=== PATIENT | male | born 1960 | race Caucasian/White ===

== ENCOUNTER 2019-01-09 10:39 | Observation (INO) ==
[2019-01-09 11:08] LABS: BASO# 0.06 X1000 (0.0-0.2); BASO% 0.4 % (0.0-0.8); EOS# 1.06 X1000 (0.0-0.7); EOS% 7.1 % (0.0-10.0); HEMATOCRIT 38.9 % (42.0-52.0); HEMOGLOBIN 13.8 g/dL (14.0-18.0); IMM GRAN# 0.04 X1000 (0.0-0.04); IMM GRAN% 0.3 % (0.0-0.5); LYMPH# 2.06 X1000 (1.2-3.4); LYMPH% 13.9 % (20.5-51.1); MCH 30.9 PG (27-31); MCHC 35.5 g/dL (33-37); MONO# 1.54 X1000 (0.11-0.59); MONO% 10.4 % (1.7-9.3); MPV 9.6 FL (7.4-10.4); NEUT# 10.07 X1000 (1.4-6.5); NEUT% 67.9 % (42.2-75.2); PLT 387 X1000 (130-400); RBC 4.47 XMIL (4.7-6.1); RDW 12.6 % (11.5-14.5); WBC 14.83 X1000 (4.8-10.8)
--- NOTE | 2019-01-09 11:28 | EKG Report ---
Test Performed on : 01/09/2019 10:52:10 AM Test Reason : syncope Blood Pressure : / mmHG Vent. Rate : 098 BPM Atrial Rate : 098 BPM P-R Int : 172 ms QRS Dur : 082 ms QT Int : 338 ms P-R-T Axes : 047 015 063 degrees QTc Int : 431 ms Normal sinus rhythm. Normal ECG No previous ECGs available Unconfirmed Result
[2019-01-09 11:37] LABS: ALBUMIN 4.5 g/dL (3.5-5.0); CALCIUM 8.8 mg/dL (8.8-10.2); CREATININE 1.4 mg/dL (0.7-1.2); POTASSIUM 3.7 mmol/L (3.5-5.1); TOTAL BILIRUBIN 0.4 mg/dL (0.20-1.00); TOTAL PROTEIN 7.2 g/dL (6.3-8.3)
[2019-01-09 11:39] LABS: INR 0.95; PROTIME 13.2 Seconds (11.0-16.0)
[2019-01-09 11:40] LABS: PTT 27.1 Seconds (22.3-41.8)
[2019-01-09] MEDS ORDERED: SODIUM CHLORIDE IV ONE (11:44)
[2019-01-09] MEDS ORDERED: NS 1,000 ML IV ONE (11:44)
[2019-01-09 13:12] LABS: BILIRUBIN URINE NEGATIVE (NEGATIVE); BLOOD URINE 4+ (NEGATIVE); CLARITY CLEAR (CLEAR); COLOR YELLOW; GLUCOSE URINE NEGATIVE (NEGATIVE); KETONE URINE NEGATIVE (NEGATIVE); LEUKOCYTES URINE 2+ (NEGATIVE); NITRITE URINE NEGATIVE (NEGATIVE); PROTEIN URINE 2+(100 mg/dL) mg/dL (NEGATIVE); UROBILINOGEN URINE NORMAL
[2019-01-09 13:14] LABS: URINE BACTERIA 1+ /HFP; URINE CAST NONE SEEN /LPF; URINE CRYSTAL NONE SEEN /HPF; URINE EPITHELIAL CELLS <10 /HPF (<10); URINE RBC TNTC /HPF (<10); URINE SOURCE CLEAN CATCH; URINE WBC 20-40 /HPF (<10); URINE YEAST NONE SEEN /HPF
--- NOTE | 2019-01-09 13:47 | Diag Imaging Result Doc PS360 ---
CHEST-1 VIEW - 01/09/2019 INDICATION: Sepsis COMPARISON: None FINDINGS: The lungs are normally expanded and clear. Heart size and mediastinal contours are normal. No pneumothorax or pleural effusion. IMPRESSION: Negative exam. Electronically signed by Sidney Palomares 01/09/2019 1:45 PM
--- NOTE | 2019-01-09 14:16 | PROVIDER DOCUMENTATION ---
This chart was entered by Kalina Ford Scribe, acting as scribe for Donavan Acharya MD. HPI-Syncope/Dizziness - General Chief Complaint: Syncope Stated Complaint: PASSED OUT Time Seen by Provider: 01/09/19 11:19 Source: patient Allergies/Adverse Reactions: Patient Allergies Allergy/AdvReac Type Severity Reaction Status Date / Time No Known Allergies Allergy Verified 01/09/19 10:47 - History of Present Illness-Syncope/Dizzy Nature of Presenting Problem: 58 y/o male presents to ED with dizziness onset 2 days ago. Pt reports he has b een falling due to his symptoms. Pt states he experiences dizziness when he stands up. Pt reports he had cardenas placed in Dr. Laughlin's office on Friday due to retention and incontinence. Pt states he has experienced dysuria and hematuria since cardenas placement. Pt is alert and oriented. Prior Episodes: reports: no prior history Onset/Duration: reports: 2 days ago Timing: reports: still present Position/Activity at time of episode: reports: standing Symptoms prior to episode: reports: none Context: reports: collapsed, felt faint, almost passed out Loss of Consciousness: no loss of consciousness Location of injury. (If syncope resulted in an injury.): reports: none Current Symptoms: reports: dizzy Recently Seen Here or By Another Healthcare Provider: No - Dizziness Severity in ED: reports: mild Dizziness Related Current/Associated Symptoms: reports: dizzy Any recent trauma/injury?: reports: none Modifying Factors: improves with: lying down. worse with: changing position, standing position Patient usually:: reports: walks without assistance Review of Systems - Adult - REVIEW OF SYSTEMS - ADULT Constitutional: denies: chills, fever Eyes: reports: no symptoms reported Ears, Nose, Mouth & Throat: reports: no symptoms reported Cardiovascular: denies: chest pain, palpitations Respiratory: denies: cough, shortness of breath Gastrointestinal: denies: abdominal pain, diarrhea, nausea, vomiting Genitourinary: reports: dysuria, hematuria Musculoskeletal: denies: back pain, joint pain Integumentary: reports: no symptoms reported Neurological: reports: dizziness/vertigo. denies: seizure Psychiatric: reports: no symptoms reported Endocrine: reports: no symptoms reported Hematologic/Lymphatic: reports: no symptoms reported Allergic/Immunologic: reports: no symptoms reported All Other Systems: Reviewed and Negative Past History - Adult - PAST MEDICAL HISTORY-ADULT Review of Records: reports: Old Records Reviewed, Nursing Assessment Review, Medications Reviewed Major Childhood Illnesses: reports: denies history Cardiovascular: reports: HTN Musculoskeletal: reports: other (neuropathy) Psychiatric: reports: depression Endocrine/Immune: reports: Diabetes, thyroid disorder - PRIOR SURGERIES/PROCEDURES Surgical/Procedure History: reports: none - IMMUNIZATION STATUS Childhood Immunizations: See Nurse Assessment Flu Vaccine: See Nurse Assessment - FAMILY HISTORY Family History: reviewed, not pertinent - SOCIAL HISTORY Smoking: non-smoker Substance Use: none/never Alcohol Use Frequency: never Living Situation: family Physical Exam-General - PHYSICAL EXAM-ADULT Initial Vital Signs Reviewed: Yes (100s/60s) - CONSTITUTIONAL General Appearance: appears well, alert, no apparent distress - EYES Eyes: PERRL/EOMI, pink conjunctivae - HEAD, EARS, NOSE, MOUTH & THROAT HENMT: normocephalic/atraumatic, moist mucous membranes, normal ENT inspection - NECK Neck: non-tender, full range of motion - RESPIRATORY Respiratory: chest non-tender, lungs clear, normal breath sounds - CARDIOVASCULAR Cardiovascular: normal peripheral pulses, regular rate, rhythm - GASTROINTESTINAL (ABDOMEN) Abdominal Exam: normal bowel sounds, non tender, soft - GENITOURINARY Male Genitalia: other (red urine in catheter bag; cardenas in place) - MUSCULOSKELETAL Back Exam: normal inspection, no CVA tenderness, no vertebral tenderness Extremity: normal range of motion, non-tender, normal gait - SKIN Integumentary: normal color, warm/dry - NEUROLOGIC Neurologic: grossly normal - PSYCHIATRIC Psych/Mental Status: normal mood/affect, normal thought content, normal thought process, oriented x 3 Progress - PLAN OF CARE/RESULTS Progress/Plan/Lab Results: Vital Signs - 8 hr 01/09/19 10:43 01/09/19 10:54 01/09/19 12:44 Temperature 98.6 F Pulse Rate 112 H 88 Pulse Rate [Sitting] 108 H Pulse Rate [Standing] 118 H Pulse Rate [Supine] 99 H Respiratory Rate 18 24 Blood Pressure 104/72 122/84 Blood Pressure [Sitting] 76/31 Blood Pressure [Standing] 69/34 Blood Pressure [Supine] 80/62 O2 Sat by Pulse Oximetry 97 93 L Laboratory Results - last 24 hr 01/09/19 01/09/19 01/09/19 11:00 11:00 11:00 WBC 14.83 H RBC 4.47 L Hgb 13.8 L Hct 38.9 L MCV 87.0 MCH 30.9 MCHC 35.5 RDW Std Deviation 12.6 Plt Count 387 MPV 9.6 Immature Gran % (Auto) 0.3 Neut % (Auto) 67.9 Lymph % (Auto) 13.9 L Pima % (Auto) 10.4 H Eos % (Auto) 7.1 Baso % (Auto) 0.4 Immature Gran # (Auto) 0.04 Neut # (Auto) 10.07 H Lymph # (Auto) 2.06 Pima # (Auto) 1.54 H Eos # (Auto) 1.06 H Baso # (Auto) 0.06 PT INR PTT (Actin FS) Sodium 136 Potassium 3.7 Chloride 94 L Carbon Dioxide 27 Anion Gap 15 BUN 22 Creatinine 1.4 H Estimated GFR/1.73 m2 52 BUN/Creatinine Ratio 16 Glucose 130 H Calculated Osmolality 277 Calcium 8.8 Total Bilirubin 0.40 AST 20 ALT 18 Alkaline Phosphatase 68 Creatine Kinase 109 Troponin T Qyd-P-Kfmjakizody Pept 20 Total Protein 7.2 Albumin 4.5 Globulin 3.0 Albumin/Globulin Ratio 2.0 Plasma Lactate PSA Diagnostic Urine Source Urine Color Urine Clarity Urine pH Ur Specific [place] Urine Protein Urine Ketones Urine Blood Urine Nitrite Urine Bilirubin Urine Urobilinogen Urine Microscopic RBC Urine WBC Urine Microscopic WBC Ur Epithelial Cells Urine Crystals Urine Bacteria Urine Casts Urine Yeast Urine Glucose 01/09/19 01/09/19 01/09/19 11:00 11:00 11:00 WBC RBC Hgb Hct MCV MCH MCHC RDW Std Deviation Plt Count MPV Immature Gran % (Auto) Neut % (Auto) Lymph % (Auto) Pima % (Auto) Eos % (Auto) Baso % (Auto) Immature Gran # (Auto) Neut # (Auto) Lymph # (Auto) Pima # (Auto) Eos # (Auto) Baso # (Auto) PT 13.2 INR 0.95 PTT (Actin FS) 27.1 Sodium Potassium Chloride Carbon Dioxide Anion Gap BUN Creatinine Estimated GFR/1.73 m2 BUN/Creatinine Ratio Glucose Calculated Osmolality Calcium Total Bilirubin AST ALT Alkaline Phosphatase Creatine Kinase Troponin T < 0.010 Cdg-F-Guszmqhiqzr Pept Total Protein Albumin Globulin Albumin/Globulin Ratio Plasma Lactate PSA Diagnostic 3.84 Urine Source Urine Color Urine Clarity Urine pH Ur Specific [place] Urine Protein Urine Ketones Urine Blood Urine Nitrite Urine Bilirubin Urine Urobilinogen Urine Microscopic RBC Urine WBC Urine Microscopic WBC Ur Epithelial Cells Urine Crystals Urine Bacteria Urine Casts Urine Yeast Urine Glucose 01/09/19 01/09/19 11:55 13:05 WBC RBC Hgb Hct MCV MCH MCHC RDW Std Deviation Plt Count MPV Immature Gran % (Auto) Neut % (Auto) Lymph % (Auto) [place] % (Auto) Eos % (Auto) Baso % (Auto) Immature Gran # (Auto) Neut # (Auto) Lymph # (Auto) [place] # (Auto) Eos # (Auto) Baso # (Auto) PT INR PTT (Actin FS) Sodium Potassium Chloride Carbon Dioxide Anion Gap BUN Creatinine Estimated GFR/1.73 m2 BUN/Creatinine Ratio Glucose Calculated Osmolality Calcium Total Bilirubin AST ALT Alkaline Phosphatase Creatine Kinase Troponin T Fqc-A-Gokiibnaznk Pept Total Protein Albumin Globulin Albumin/Globulin Ratio Plasma Lactate 1.5 PSA Diagnostic Urine Source CLEAN CATCH Urine Color YELLOW Urine Clarity CLEAR Urine pH 7.0 Ur Specific [place] 1.000 Urine Protein 2+(100 mg/dL) A Urine Ketones NEGATIVE Urine Blood 4+ Urine Nitrite NEGATIVE Urine Bilirubin NEGATIVE Urine Urobilinogen NORMAL Urine Microscopic RBC TNTC A Urine WBC 2+ A Urine Microscopic WBC 20-40 A Ur Epithelial Cells <10 Urine Crystals NONE SEEN Urine Bacteria 1+ Urine Casts NONE SEEN Urine Yeast NONE SEEN Urine Glucose NEGATIVE Orders Category Date Time Status Bladder Scan and Record Result ORDERED Care 01/09/19 11:50 Active Cardiac Monitoring DIRECTED Care 01/09/19 10:54 Active Cardiac Monitoring DIRECTED Care 01/09/19 11:39 Active Finger Stick Blood Sugar (ED) DIRECTED Care 01/09/19 10:48 Active IV Insertion ORDERED Care 01/09/19 11:39 Completed Notify MD of + Sepsis Screen NOW Care 01/09/19 11:39 Active Notify Physician As Ordered Care 01/09/19 11:39 Active Nursing- Obtain EKG ONCE Care 01/09/19 10:48 Active Oxygen Therapy- ED Nursing DIRECTED Care 01/09/19 10:54 Active Saline Loc NOW Care 01/09/19 10:54 Active CHEST-1 VIEW [RAD] Stat Exams 01/09/19 11:39 Completed BLOOD CULTURE [BLDCUL] Stat Lab 01/09/19 11:44 Ordered CBC WITH ELECTRONIC DIFF [HEME] Stat Lab 01/09/19 11:00 Completed CK PROFILE [SP CHEM] Stat Lab 01/09/19 11:00 Completed COMPREHENSIVE METABOLIC PANEL [CHEM] Stat Lab 01/09/19 11:00 Completed LACTATE, PLASMA [CHEM] Lab 01/09/19 13:53 Received LACTATE, PLASMA [CHEM] Lab 01/09/19 17:45 Uncollected LACTATE, PLASMA [CHEM] Q3H Lab 01/09/19 11:55 Completed PRO B-NATRIURETIC PEPTIDE Stat Lab 01/09/19 11:00 Completed PROTIME WITH INR [COAG] Stat Lab 01/09/19 11:00 Completed PSA DIAGNOSTIC Stat Lab 01/09/19 11:00 Completed PTT [COAG] Stat Lab 01/09/19 11:00 Completed TROPONIN T Stat Lab 01/09/19 11:[address] W/POSS RFLX CULT [URINALYSIS] Stat Lab 01/09/19 13:05 Completed URINE CULTURE [RM] Routine Lab 01/09/19 13:14 Ordered 0.9% Sodium Chloride Inj [Ns] 1,000 ml Med 01/09/19 11:44 Discontinued IV 999 mls/hr 0.9% Sodium Chloride Inj [Ns] 3,250 ml Med 01/09/19 11:44 Active IV 999 mls/hr CP/SOB/Palp >45 yrs of Age Stat Oth 01/09/19 10:53 Ordered Oxygen Device Stat Oth 01/09/19 11:39 Active EKG [EKG] Stat Ther 01/09/19 10:48 Draft Result Diagrams: 01/09/19 11:00 01/09/19 11:00 - EKG 1 Time of EKG reading by physician:: 10:52 EKG Read and Signed by:: Donavan Acharya EKG Interpretation (*Must complete 3 of following elements*): Normal Rate: 98 Rhythm: NSR Standish: normal QRS: normal PA Interval: normal ST Wave: normal - XRAY 1 XRAY Study: Chest Impression: See EMR Report ([facility] - [address], [address], [place] [address] [facility] - [address] [place] [address] Department of Imaging Patient: HECTOR PATEL Date: 01/09/19MR#: [id number] : 9ADM Status: REG ERAt#: [id number] Age/Sex: 58/MRoom/Bed: Loc: P.ED Ordering Physician: Donavan Acharya MD Family Physician: Brie Carson Reason for Procedure: Sepsis Signed CHEST-1 VIEW - 01/09/2019 INDICATION: Sepsis COMPARISON: None FINDINGS: The lungs are normally expanded and clear. Heart size and mediastinal contours are normal. No pneumothorax or pleural effusion. IMPRESSION: Negative exam. Electronically signed by Sidney Palomares 01/09/2019 1:45 PM 01/09/19 134 Interpreting Physician: Sidney Palomares MD Dictated Date/Time: 01/09/19 1345 cc: Donavan Acharya MD; Brie Carson) - CONSULTS/PCP/HOSPITALIST Notification #1 *Consult/PCP/Hospitalist*: TYLER Cordova for Dr. Jorgensen Time Discussed: 14:08 Reason/Comments: Hypotension; complicated UTI with cardenas Consult Disposition: Admit Departure - Departure Date of Disposition Decision: 01/09/19 Time of Disposition Decision: 14:08 DIAGNOSIS: Complicated UTI (urinary tract infection), Indwelling Cardenas catheter present Hypotension Qualifiers: Hypotension type: unspecified hypotension type Qualified Code(s): I95.9 - Hypotension, unspecified Disposition: ADMITTED INPATIENT 09 Certified Medical Emergency: Emergent Condition: Stable Referrals and Follow-Ups: Brie Carson [Primary Care Provider] - - Critical Care Note This patient required my direct & personal management of CC.: No Attestation - Physician/ SHAMEKA Attestation Patient care was provided by Advanced Practice Provider:: No The physician spent face to face time with patient:: Yes Advanced Practice Provider documentation review:: Supervising physician onsite and consulted in the evaluation and care of this patient. The physician did have a face to face encounter with the patient. This chart was documented by the indicated scribe, (Kalina Ford, Elizabeth) and accurately reflects the services I performed and decisions made by me, Donavan Acharya MD, as attested by the provider's signature.
[2019-01-09] MEDS ORDERED: ZOFRAN IV PRN (14:51)
[2019-01-09] MEDS: NS 1,000 ML IV SCH ×2 (15:00→23:41)
[2019-01-09] MEDS ORDERED: LEVAQUIN 500 MG/D5W 500 MG/100 ML IVPB IV ONE (15:01)
--- NOTE | 2019-01-09 16:50 | HISTORY AND PHYSICAL ---
CHIEF COMPLAINT: Syncope, falls, weakness. HISTORY OF PRESENT ILLNESS: This is a 58-year-old gentleman with a history of urinary retention, diabetes mellitus, hypertension, hypothyroid and neuropathy. He presents to the emergency room complaining of gross hematuria in his Ramirez and near syncope. The patient states that over the last 2 to 2-1/2 months he has experienced urinary retention and he was evaluated by Dr. Laughlin approximately 3 days ago and a Ramirez was placed in his office. He was also given a prescription for Flomax. The patient states that night he started having dizzy spells stated he would stand up, he would become dizzy, his ears would ring, he would get very weak and he would fall. He denied any loss of consciousness. He stated that once he fell he could get up but if he stood symptoms would recur. He did state that symptoms would resolve if he crawled on his hands and knees or sat down. He denies any prior episodes similar to this. He denied any chest pain or palpitations. The patient is noted to be on phentermine 37.5 mg that he takes twice a day he takes 1 in the morning and 1 at 2 p.m. He did state that this was started in September or October and he remembers that he started having trouble emptying his bladder about a month after. PAST MEDICAL HISTORY: Diabetes mellitus, hypertension, hypothyroid, neuropathy. PAST SURGICAL HISTORY: Denies. SOCIAL HISTORY: He denies alcohol, tobacco or illicit drug use. ALLERGIES: No known drug allergies. HOME MEDICATIONS: 1. Tamsulosin 0.4 mg p.o. daily. 2. Simvastatin 20 mg p.o. daily. 3. Phentermine 37.5 mg q.a.m. and 2 p.m. 4. Metformin 500 mg p.o. b.i.d. 5. Lisinopril/hydrochlorothiazide 20/12.5 t.i.d. 6. Levothyroxine 125 mcg p.o. daily. 7. Freeman 7.5 b.i.d. 8. Gabapentin 600 mg p.o. 2 tablets at bedtime. 9. Duloxetine 60 mg p.o. daily. REVIEW OF SYSTEMS: Discussed with patient with pertinent positives stated in the HPI. He denied any chest pain, palpitations, shortness of breath, cough, fever, chills, any night sweats, any recent weight loss or weight gain, any nausea, vomiting, diarrhea, constipation, black or bloody vomitus or stools, any hematuria, dysuria, frequency, urgency [*]. PHYSICAL EXAMINATION: GENERAL: This is a 58-year-old gentleman who is lying in the bed in no distress. VITAL SIGNS: Blood pressure is 141/78 with a heart rate of 90, respirations are 20, temperature is 98.7 degrees oral with room air saturations 93 to 98 percent. HEENT: Head is normocephalic, atraumatic. Sclerae anicteric. Mucous membranes are moist. NECK: Supple with trachea midline. CARDIOVASCULAR: Regular rate and rhythm. S1, S2 appreciated. His calves are nontender bilateral with peripheral pulses palpable x4 extremities. PULMONARY: Breath sounds are clear. No increased work of breathing noted. Chest rises, fall symmetric respiration. GASTROINTESTINAL: Soft, nontender, nondistended with bowel sounds in all 4 quadrants. GENITOURINARY: He has no CVA tenderness. Ramirez is patent to bedside bag with clear pink tinged urine noted. NEUROLOGIC: He is alert, oriented x3. SKIN: Warm and dry. ASSESSMENT AND PLAN: 1. Near-syncope. 2. Orthostasis. 3. Urinary retention status post Ramirez placement. 4. History of diabetes mellitus. 5. Hypertension. 6. Hypothyroid. 7. Peripheral neuropathy. 8. Acute kidney injury. PLAN: The patient will be admitted to [facility] with telemetry. Will give supplemental oxygen if needed. Will continue Levaquin daily for antibiotic coverage and further antibiotics will be culture driven. We will obtain orthostatic vital signs every 12 hours. We will hold his antihypertensives or any pressure affecting medications. We will continue with IV hydration. We will hold his phentermine, lisinopril hydrochlorothiazide and his metformin at present. He will be placed on pattern blood glucose with sliding scale insulin. We will repeat a CBC, CMP in the morning. For DVT prophylaxis will use SCDs. Will hold off on any anticoagulation as the patient has fallen multiple times and for GI prophylaxis PPI. Further treatments pending hospital course. Dictated by TYLER Abdi for Sandip Jorgensen MD cc: TYLER Abdi MD
[2019-01-09] MEDS: MORPHINE IV PRN ×2 (18:52→23:38)
[2019-01-09] MEDS: HUMALOG SUBQ SCH (22:23)
[2019-01-10] MEDS: MORPHINE IV PRN ×4 (03:46→20:26)
[2019-01-10] MEDS: HUMALOG SUBQ SCH ×4 (06:47→21:34)
[2019-01-10 06:50] LABS: BASO# 0.06 X1000 (0.0-0.2); BASO% 0.4 % (0.0-0.8); EOS# 0.97 X1000 (0.0-0.7); HEMATOCRIT 38.2 % (42.0-52.0); IMM GRAN# 0.06 X1000 (0.0-0.04); IMM GRAN% 0.4 % (0.0-0.5); LYMPH# 2.12 X1000 (1.2-3.4); LYMPH% 15.4 % (20.5-51.1); MCH 30.2 PG (27-31); MCV 88.8 FL (81-99); MONO# 1.68 X1000 (0.11-0.59); MONO% 12.2 % (1.7-9.3); MPV 9.6 FL (7.4-10.4); NEUT# 8.87 X1000 (1.4-6.5); NEUT% 64.6 % (42.2-75.2); PLT 311 X1000 (130-400); RDW 12.6 % (11.5-14.5); WBC 13.76 X1000 (4.8-10.8)
[2019-01-10 07:00] LABS: AGAP 14; BUN 18 mg/dL (8-22); CALCIUM 8.3 mg/dL (8.8-10.2); CHLORIDE 103 mmol/L (98-107); COSMO 281; CREATININE 1.1 mg/dL (0.7-1.2); ESTIMATED GFR > 60; GLUCOSE 93 mg/dL (70-104); POTASSIUM 3.7 mmol/L (3.5-5.1); SODIUM 140 mmol/L (136-145); TCO2 23 mmol/L (25-35); TOTAL BILIRUBIN 0.29 mg/dL (0.20-1.00); TOTAL PROTEIN 6.8 g/dL (6.3-8.3)
[2019-01-10 07:01] LABS: ALB/GLOB RATIO 1.2; ALBUMIN 3.7 g/dL (3.5-5.0); ALKALINE PHOSPHATASE 67 U/L (32-122); GOT 18 U/L (10-34); GPT 18 U/L (10-44)
[2019-01-10] MEDS: PRILOSEC PO SCH (07:40)
[2019-01-10] MEDS: NS 1,000 ML IV SCH ×2 (10:01→17:18)
--- NOTE | 2019-01-10 11:57 | PROGRESS NOTE ---
DATE: 01/10/2019 SUBJECTIVE: This morning, Mr Scott refers to be doing a lot better. No more dizziness. No syncope. He continues to have remarkable bloody urine. OBJECTIVELY: Vitals: Blood pressure 125/57, pulse of 87, respiration is 18, temperature 97.5 degrees. On general exam, Mr. Dominguez is a 58-year-old morbidly obese gentleman. He was sitting up in a chair in no distress. Mucosa is pink and moist. Anicteric. Acyanotic. Neck is supple. Chest is clear to auscultation. No crepitations. No rhonchi. Cardiovascular: Regular rate and rhythm. Abdomen: Soft, distended, but nontender. Bowel sounds present. Extremities: No pedal edema. Central Nervous System: Patient is awake, alert, and oriented. Genitourinary: There is a Ramirez catheter in place which has bloody urine. DIAGNOSTIC STUDIES: WBC is 13.76, hemoglobin is 13.0, platelet count of 311. Chemistry is also reviewed and is completely unremarkable. So far, urine culture shows no growth. ASSESSMENT: 1. Syncope at home with positive orthostatic vitals, consistent with some orthostatic hypotension- induced syncope, improved. 2. Orthostatic hypotension secondary to tamsulosin. Medication has been withheld. 3. Obstructive uropathy, presumably due to BPH. This has been overcome by Ramirez catheter placement. Urology has been consulted. 4. Hematuria. Etiology is unclear. So far urine culture has been negative. We are pending Urology consult for further diagnostic evaluation. Patient refers that there was an outpatient plan for possible cystoscopy. We will await Urology recommendations on that. 5. Patient's hemoglobin and hematocrit are fairly stable. cc: Anderson Dugan MD
--- NOTE | 2019-01-10 13:00 | CONSULTATION ---
DATE OF CONSULTATION: 01/10/2019 ATTENDING AND REFERRING PHYSICIAN: Hospitalist. HISTORY OF PRESENT ILLNESS: This 58-year-old male was admitted with dizziness and syncopal episodes. He states that this started a day after he was started on tamsulosin for obstructive voiding symptoms and urinary retention. The patient was seen in the Urology Clinic on the 08 of January with urinary retention. A Ramirez catheter was placed and he was started on Flomax (tamsulosin). The patient states that the day after he started having significant dizziness and syncopal episodes, and then he noted hematuria. He states that for a day or so after the catheter was placed, there was no blood. The patient denies any previous urologic surgery. He has no history of kidney stones. He has no problems with urinary tract infections. The patient states he continues with intermittent blood in the Ramirez catheter. The patient states he would really like the catheter out. It is causing spasm-like pains. PAST MEDICAL HISTORY: Obesity, hypertension, hypothyroidism, muscle pains and aching. The patient states he does not have diabetes but is on phentermine and metformin for weight loss. He states he has been on this for several months. His fingerstick blood sugars are somewhat elevated at 130. MEDICATIONS: Current medications are documented on the chart and the tamsulosin has been discontinued. PAST SURGICAL HISTORY: Negative. SOCIAL HISTORY: No tobacco or alcohol use. ALLERGIES: No known drug allergies. REVIEW OF SYSTEMS: He denies any heart disease, chest pains, pulmonary or bowel problems. The patient states he does have some suprapubic area spasms but that just started after his syncopal episodes. PHYSICAL EXAMINATION: General: An obese, age apparent, normally-developed, white male, oriented in all ways, and cooperative. HEENT: Normal for age. Lungs: Clear. Cardiovascular: Regular rate and rhythm. Abdomen: Obese, soft, nontender. No hepatosplenomegaly or masses. Normal bowel sounds. The bladder is not palpable. : Ramirez catheter in place, in an uncircumcised male. Foreskin is reduced. Both testes are down and palpably normal. No inguinal hernias. Rectal Examination: Per Dr. Laughlin on 01/08/2019. Extremities: No clubbing, cyanosis, or edema. Neurologic: No focal deficits. Ramirez catheter is in place and there is trudy-colored urine in the drainage bag. LABORATORY EVALUATION: He has normal serum electrolytes, BUN 18, creatinine 1.1. CBC has a white count of 13.76, hemoglobin of 13.0, hematocrit of 38.2, and platelets of 311,000. Urine culture preliminary is no growth. IMPRESSION: 1. History of enlarged prostate with obstructive voiding. 2. History of urinary retention. 3. Hematuria, probably due to Ramirez catheter trauma. 4. Dizziness, syncopal episodes, probably due to medication. RECOMMENDATIONS: 1. Remove Ramirez catheter and 4 hours later, a postvoid residual check. If there is less than or equal to 150 mL, we will leave the Ramirez out and check postvoid in the morning. If greater than 150, replace the Ramirez catheter. 2. Continue holding Flomax. 3. Discussed with the patient that if he continues with urinary retention and cannot tolerate medication to help the bladder empty, surgery would be the next step. Thank you for this consultation. cc: Jose Alejandro Barber MD
[2019-01-10] MEDS ORDERED: LEVAQUIN 500 MG/D5W 500 MG/100 ML IVPB IV SCH (17:00)
[2019-01-10] MEDS ORDERED: XYLOCAINE 2% JELLY UROJECT TOP ONE (17:17)
[2019-01-10 18:38] LABS: URINE SOURCE CATH
[2019-01-10 18:41] LABS: BILIRUBIN URINE NEGATIVE (NEGATIVE); BLOOD URINE LARGE (NEGATIVE); COLOR YELLOW; GLUCOSE URINE NEGATIVE (NEGATIVE); KETONE URINE NEGATIVE (NEGATIVE); LEUKOCYTES URINE MODERATE (NEGATIVE); NITRITE URINE NEGATIVE (NEGATIVE); PH URINE 6.5; PROTEIN URINE 200 mg/dL (NEGATIVE); TURBIDITY URINE HAZY (CLEAR); UROBILINOGEN URINE NORMAL (NORMAL)
[2019-01-10 18:49] LABS: UR EPITHELIAL CELLS >10 /HPF (<10); URINE BACTERIA NEGATIVE /HPF; URINE RBC TNTC /HPF (<10); URINE WBC TNTC /HPF (<10)
[2019-01-10 19:15] LABS: URINE CASTS NONE SEEN; URINE CRYSTALS NONE SEEN; URINE SMALL ROUND CELLS TRANS PRESENT; URINE YEAST NONE SEEN
[2019-01-11] MEDS: MORPHINE IV PRN (05:00)
[2019-01-11] MEDS: PRILOSEC PO SCH (06:30)
[2019-01-11 06:35] LABS: BASO# 0.06 X1000 (0.0-0.2); BASO% 0.6 % (0.0-0.8); EOS% 8.6 % (0.0-10.0); HEMOGLOBIN 12.6 g/dL (14.0-18.0); IMM GRAN# 0.05 X1000 (0.0-0.04); IMM GRAN% 0.5 % (0.0-0.5); LYMPH# 1.68 X1000 (1.2-3.4); MCH 30.6 PG (27-31); MCV 87.4 FL (81-99); MONO# 1.26 X1000 (0.11-0.59); MPV 9.7 FL (7.4-10.4); NEUT# 6.52 X1000 (1.4-6.5); NEUT% 62.3 % (42.2-75.2); PLT 299 X1000 (130-400); RBC 4.12 XMIL (4.7-6.1); RDW 12.5 % (11.5-14.5); WBC 10.47 X1000 (4.8-10.8)
[2019-01-11 06:43] LABS: AGAP 13; ALBUMIN 3.5 g/dL (3.5-5.0); BUN 14 mg/dL (8-22); CALCIUM 7.5 mg/dL (8.8-10.2); CHLORIDE 105 mmol/L (98-107); COSMO 282; ESTIMATED GFR > 60; GLUCOSE 101 mg/dL (70-104); PHOSPHORUS 2.5 mg/dL (2.7-4.5); POTASSIUM 3.4 mmol/L (3.5-5.1); SODIUM 141 mmol/L (136-145); TCO2 23 mmol/L (25-35)
[2019-01-11] MEDS: HUMALOG SUBQ SCH (06:54)
[2019-01-11 07:30] VITALS: BP 129/69
[2019-01-11] MEDS: NS 1,000 ML IV SCH ×2 (07:37→08:57)
[2019-01-11] MEDS ORDERED: AVODART PO ONE (09:37)
--- NOTE | 2019-01-12 12:31 | DISCHARGE SUMMARY ---
ADMISSION DATE: 01/09/2019 DISCHARGE DATE: 01/11/2019 DISPOSITION: Home. FOLLOWUP: 1. Ms. Olivia Lake. 2. Dr. Laughlin. CONSULTATIONS DURING THIS ADMISSION: Urology was consulted. Patient was seen by Dr. Barber. INVASIVE PROCEDURES DONE DURING ADMISSION: None. IMAGING STUDIES OF SIGNIFICANCE: A chest x-ray was negative. ADMISSION DIAGNOSES: 1. Near syncope. O2 stasis. 1. Urine retention. 2. Hypothyroidism. DIAGNOSES AT TIME OF DISCHARGE: 1. Syncope at home secondary to orthostatic hypotension from tamsulosin side effects. 2. Obstructive uropathy presumably due to BPH, which has been overcome by Ramirez catheter placement. 3. Hematuria, presumably due to urethral trauma during Ramirez catheter placement. 4. Hypertension. 5. Diabetes mellitus. 6. Morbid obesity with BMI of 41.6. DISCHARGE MEDICATIONS: 1. Gabapentin 600 b.i.d. 2. Levothyroxine 125 mcg p.o. daily. 3. Lisinopril with hydrochlorothiazide 1 tablet daily. 4. Metformin 850 b.i.d. 5. Simvastatin 20 mg p.o. at bedtime. 6. Avodart 0.5 mg p.o. daily. PRESENTING COMPLAINT: Syncope, fall, and weakness. HISTORY OF PRESENTING COMPLAINT: Mr. Dominguez is 58-year-old male with history of multiple comorbidities who was having some obstructive urinary syndrome symptoms so he went to see Dr. Laughlin a couple of weeks before this presentation. A Ramirez catheter was placed in, and patient was placed on tamsulosin. The patient refers that at home after a couple of days on tamsulosin he started becoming extremely weak and dizzy falling down, and his catheter also became bloody. Upon presenting to the emergency department, he was evaluated. He was orthostatic positive. He was admitted for further medical care. He initially presented to the [facility] where he was transferred over here to [facility] for higher level of care and neurology consult. HOSPITAL COURSE: Mr. Scott was admitted and was fluid resuscitated. Tamsulosin was discontinued, and urology was consulted. Patient was seen by Dr. Barber who recommended to start the patient on Avodart. Mr. Scott became completely asymptomatic, adequately hydrated, and euvolemic. Urology recommended the patient could be discharged, and they will follow up in their clinic. Mr. Scott is stable for discharge this morning. All of the discharge instructions have been discussed with him. He is currently completely asymptomatic and still minimally orthostatic but no symptoms. He has been advised to continue adequate hydration at home, and follow up with the urologist. His Flomax has been discontinued, and he will be on Avodart now. TIME SPENT: Time spent for discharge is 35 minutes. cc: Anderson Dugan MD MTDD
== END 2019-01-11 11:34 | disposition home or self-care (01) ==
LOC: P.ED 10:39 → 4N 16:25 → SUATTDRO 16:25 → INTOOBSV 16:25
PROVIDERS: ATTEND Internal Medicine
CPT/HCPCS: 71010; 71045; 80053; 80069; 81001; 82550; 82948; 83605; 83880; 84153; 84443; 84484; 85025; 85610; 85730; 87040; 87088; 93005; 94761; A9270; J1815; J1956; J2270; J7030; XXXXX